=== PATIENT | female | born 2000 | race Caucasian/White ===

== ENCOUNTER 2022-09-17 10:35 | Observation (INO) ==
[2022-09-17] MEDS ORDERED: SODIUM CHLORIDE 0.9% 1000ML 1,000 ML IV ONE (12:07)
--- NOTE | 2022-09-17 12:07 | Emergency Department Note ---
Impression & Plan Acute appendicitis ADMIT ED Provider Note HPI: The patient is a 22-year-old female who presents emergency department with a chief complaint of appendicitis. Patient states she was seen earlier today at [facility] in [place]. She was diagnosed with appendicitis after CT imaging was performed. Patient states that she was not comfortable having the surgery done at that hospital and therefore came here to [facility] for possible surgical intervention. On arrival here to the ED the patient is in no acute distress, she is hemodynamically stable, she is afebrile on arrival. She states she has not had any nausea or vomiting, she has had localized right lower quadrant pain for the past 2 days ROS: - Per HPI *Outpatient medications and allergy history reviewed. *Pertinent external medical records reviewed. PE: General: Alert HEENT: Normocephalic, trachea midline Eyes: Extraocular eye movement is intact, no scleral erythema Pulmonary: Clear to auscultation bilaterally, no wheezing Cardio: Regular rate and rhythm GI: Abdomen is soft to palpation, there is moderate tenderness to palpation in the right lower quadrant without guarding or rigidity : No suprapubic tenderness MSK: No evidence of trauma or malformation of the extremities, no edema Skin: No evidence of rash Neuro: Alert, no focal deficits Psychiatric: Cooperative maintenance journeyman: (As interpreted by myself): - An order was placed for continuous cardiac monitoring - Patient was noted to be in sinus rhythm with a rate of 80 Interventions provided in ED: -IV fluid bolus Differential Diagnosis: Acute appendicitis, ovarian torsion, urinary tract infection, diverticulitis, gastroenteritis, small bowel obstruction, amongst other potential pathologies. Medical Decision Making: The patient is an otherwise healthy 22-year-old female who presents emergency department for evaluation after she was diagnosed with acute appendicitis at an outside hospital earlier this morning. On arrival here to the ED the patient is in no acute distress, she does have some tenderness in the right lower quadrant on my exam, no guarding or rigidity. IV was established and lab work obtained, patient was placed on claims adjuster crop, given the adnexal tenderness on exam while awaiting fax report from [facility], ultrasound imaging of the pelvis was obtained that does not show any evidence of ovarian torsion on the right side or any other acute abnormality. Patient's urinalysis does not appear to be consistent with obvious infection, she does have a mild leukocytosis. Case was discussed with on-call general surgery, Dr. Truong, he did evaluate the patient at the bedside. We did review records that were faxed from [facility], CT scan was read as acute appendicitis. Following Dr. Truong's evaluation, he transported the patient to the operating room for definitive care. Patient was transferred to the operating room under the service of Dr. Truong in stable condition. Consultants: General surgery, Dr. Truong Diagnosis: 1. Acute appendicitis 2. Acute abdominal pain, right lower quadrant 3. Leukocytosis Disposition: Admission to general surgery Ranjeet Chavez DO Emergency Medicine Allergies Allergies Allergy/AdvReac Type Severity Reaction Status Date / Time No Known Allergies Allergy Unverified 09/17/22 16:18 Results & Data (ED) Vital Signs Vital Signs - 24 hr 09/17/22 11:13 09/17/22 11:38 09/17/22 13:02 Temperature 36.7 C 37.4 C Temperature Source Temporal Artery Scan Oral Pulse Rate 89 Pulse Rate [Apical] 84 Pulse Rhythm [Apical] Regular Respiratory Rate 18 18 Respiratory Effort / Characteristics Non-Labored Spontaneous Respiratory Depth Normal Respiratory Pattern Regular Blood Pressure 104/68 Blood Pressure [Right Arm] 129/84 Blood Pressure Mean 80 Blood Pressure Mean [Right Arm] 99 Blood Pressure Position [Right Arm] Lying Pulse Oximetry 99 98 98 Oxygen Delivery Method Room Air Room Air Room Air Sepsis Recent Fever Within 48 Hours No Sepsis New/Unexplained Change in Mental Status No Sepsis Action Taken by Nursing No Action Required 09/17/22 13:07 09/17/22 16:56 Temperature 36.5 C Temperature Source Oral Pulse Rate Pulse Rate [Apical] 83 Pulse Rhythm [Apical] Respiratory Rate 18 Respiratory Effort / Characteristics Non-Labored Spontaneous Respiratory Depth Normal Respiratory Pattern Regular Blood Pressure Blood Pressure [Right Arm] 124/86 Blood Pressure Mean Blood Pressure Mean [Right Arm] 98 Blood Pressure Position [Right Arm] Lying Pulse Oximetry 98 Oxygen Delivery Method Room Air Sepsis Recent Fever Within 48 Hours Sepsis New/Unexplained Change in Mental Status Sepsis Action Taken by Nursing Laboratory Data 09/17/22 12:21 09/17/22 12:21 Lab Results 09/17/22 09/17/22 09/17/22 Range/Units 12:21 12:21 12:21 WBC 11.47 H (4.8-10.8) K/ul RBC 4.57 (4.20-5.40) M/uL Hgb 13.0 (12.0-16.0) g/dl Hct 37.6 (37.0-47.0) % MCV 82.3 (80.0-100.0) fL MCH 28.4 (25.0-34.0) pg MCHC 34.6 (32.0-36.0) g/dL RDW Std Deviation 37.2 (36.4-46.3) fL RDW Coeff of [place] 12.3 (11.5-14.5) % Plt Count 305 (130-400) K/uL MPV 9.6 (9.4-12.4) fL Immature Gran % (Auto) 0.3 % Neut % (Auto) 64.2 % Lymph % (Auto) 27.6 % [place] % (Auto) 6.2 % Eos % (Auto) 1.4 % Baso % (Auto) 0.3 % Neut # (Auto) 7.35 H (1.40-6.50) K/uL Lymph # (Auto) 3.17 (1.2-3.4) K/uL [place] # (Auto) 0.71 H (0.11-0.59) K/uL Eos # (Auto) 0.16 (0-0.50) K/uL Baso # (Auto) 0.04 (0-0.2) K/uL Immature Gran # (Auto) 0.04 (0.01-0.20) K/uL Sodium 140 (136-145) mmol/L Potassium 4.1 (3.5-5.1) mmol/L Chloride 110 H (98-107) mmol/L Carbon Dioxide 21 (21-32) mmol/L Anion Gap 9 (3-11) BUN 11 (6-23) mg/dl Creatinine 1.15 (0.6-1.2) mg/dl Est Cr Clr Drug Dosing 66.8 ml/min Est GFR ( Amer) 78.8 ml/min Est GFR (Non-Af Amer) 68.0 ml/min BUN/Creatinine Ratio 9.6 L (10-20) Glucose 80 (70-99(Fasting)) mg/dl Calcium 8.7 (8.5-10.1) mg/dl Total Bilirubin 0.5 (0.2-1.0) mg/dl AST 14 (13-39) U/L ALT 16 (7-52) U/L Alkaline Phosphatase 70 (34-104) U/L Total Protein 6.6 (6.0-8.3) gm/dl Albumin 3.9 (3.4-5.0) gm/dl Globulin 2.7 (2.5-4.0) gm/dl Albumin/Globulin Ratio 1.4 (0.9-2) Lipase 8 L (11-82) U/L HCG, Qual Negative (Negative) Urine Color Urine Appearance (Clear) Urine pH (4.5-7.5) Ur Specific [place] (1.000-1.030) Urine Protein (Negative) Urine Glucose (UA) (Negative) Urine Ketones (Negative) Urine Blood (Negative) Urine Nitrite (Negative) Urine Bilirubin (Negative) Urine Urobilinogen (Negative) Ur Leukocyte Esterase (Negative) Urine WBC (Auto) (0-5) /hpf Urine RBC (Auto) (0-4) /hpf U Hyaline Cast (Auto) (0-5) /lpf U Epithel Cells (Auto) (0-5) /lpf Urine Bacteria (Auto) (Negative) SARS-CoV-2, RNA, NAAT (NEGATIVE) 09/17/22 09/17/22 Range/Units 12:22 14:37 WBC (4.8-10.8) K/ul RBC (4.20-5.40) M/uL Hgb (12.0-16.0) g/dl Hct (37.0-47.0) % MCV (80.0-100.0) fL MCH (25.0-34.0) pg MCHC (32.0-36.0) g/dL RDW Std Deviation (36.4-46.3) fL RDW Coeff of [place] (11.5-14.5) % Plt Count (130-400) K/uL MPV (9.4-12.4) fL Immature Gran % (Auto) % Neut % (Auto) % Lymph % (Auto) % [place] % (Auto) % Eos % (Auto) % Baso % (Auto) % Neut # (Auto) (1.40-6.50) K/uL Lymph # (Auto) (1.2-3.4) K/uL [place] # (Auto) (0.11-0.59) K/uL Eos # (Auto) (0-0.50) K/uL Baso # (Auto) (0-0.2) K/uL Immature Gran # (Auto) (0.01-0.20) K/uL Sodium (136-145) mmol/L Potassium (3.5-5.1) mmol/L Chloride (98-107) mmol/L Carbon Dioxide (21-32) mmol/L Anion Gap (3-11) BUN (6-23) mg/dl Creatinine (0.6-1.2) mg/dl Est Cr Clr Drug Dosing ml/min Est GFR ( Amer) ml/min Est GFR (Non-Af Amer) ml/min BUN/Creatinine Ratio (10-20) Glucose (70-99(Fasting)) mg/dl Calcium (8.5-10.1) mg/dl Total Bilirubin (0.2-1.0) mg/dl AST (13-39) U/L ALT (7-52) U/L Alkaline Phosphatase (34-104) U/L Total Protein (6.0-8.3) gm/dl Albumin (3.4-5.0) gm/dl Globulin (2.5-4.0) gm/dl Albumin/Globulin Ratio (0.9-2) Lipase (11-82) U/L HCG, Qual (Negative) Urine Color Yellow Urine Appearance Clear (Clear) Urine pH 5.5 (4.5-7.5) Ur Specific [place] 1.022 (1.000-1.030) Urine Protein Negative (Negative) Urine Glucose (UA) Negative (Negative) Urine Ketones 1+ H (Negative) Urine Blood Negative (Negative) Urine Nitrite Negative (Negative) Urine Bilirubin Negative (Negative) Urine Urobilinogen Negative (Negative) Ur Leukocyte Esterase Trace H (Negative) Urine WBC (Auto) 10-30 H (0-5) /hpf Urine RBC (Auto) 0-4 (0-4) /hpf U Hyaline Cast (Auto) 1-5 (0-5) /lpf U Epithel Cells (Auto) >30 H (0-5) /lpf Urine Bacteria (Auto) 1+ H (Negative) SARS-CoV-2, RNA, NAAT NEGATIVE (NEGATIVE) Administered Medications Discontinued Medications Sodium Chloride (Nss 1000ml) 1,000 mls @ 999 mls/hr IV .[id number] ONE Stop: 09/17/22 13:07 Last Infusion: 09/17/22 15:15 Dose: 0 mls/hr Documented By: Admin: 09/17/22 13:05 Dose: 999 mls/hr Documented By: KAYLAH Cefoxitin Sodium (Mefoxin) 2,000 mg in 60 mls @ 100 mls/hr IV NOW STA Stop: 09/17/22 16:53 Last Admin: 09/17/22 16:41 Dose: 100 mls/hr Documented By: KAYLAH Imaging Data Radiologist's Impression: Pelvis Ultrasound 09/17/22 14:02 US pelvic complete HISTORY: 22 years-old Female RLQ pain . Acute right lower quadrant abdominal pain COMPARISON: CT abdomen and pelvis of same day TECHNIQUE: Multiple real-time sonographic images of the deep pelvic structures were obtained transabdominally and transvaginally assessing grayscale appearance, color and spectral flow FINDINGS: TRANSABDOMINAL: Pelvic structures are obscured by bowel gas. Transvaginal: Uterus measures 7.2 x 3.7 x 4.5 cm. Endometrium measures 4 mm in thickness. Trace free fluid within the pelvic cul-de-sac. Left ovary is obscured by bowel gas. The right ovary measures 1.9 x 1.2 x 3.0 cm and is unremarkable with arterial inflow and venous outflow. IMPRESSION: Unremarkable pelvic ultrasound. Nonvisualization of the left ovary. ACT 112: Negative or not required by law. The above report was generated using voice recognition software. It may contain grammatical, syntax or spelling errors. Electronically signed by: Baldomero Wallace M.D. 09/17/2022 3:43 PM Discharge Plan Visit Data Chief Complaint: Abdominal Pain Stated Complaint: ABDOMINAL PAIN,APPENDICITIS,PREFERS SURGERY HERE ED Provider: Ranjeet Chavez Discharge Problem: Acute appendicitis
[2022-09-17 12:56] LABS: Basophils # (auto) 0.04 K/uL (0-0.2); Basophils % (auto) 0.3 %; Eosinophils # (auto) 0.16 K/uL (0-0.50); Eosinophils % (auto) 1.4 %; Hematocrit (blood only) 37.6 % (37.0-47.0); Immature Granulocytes # (auto) 0.04 K/uL (0.01-0.20); Immature Granulocytes % (auto) 0.3 %; Lymphocytes # (auto) 3.17 K/uL (1.2-3.4); Lymphocytes % (auto) 27.6 %; Mean Corpuscular Hemoglobin 28.4 pg (25.0-34.0); Mean Corpuscular Hgb Conc 34.6 g/dL (32.0-36.0); Mean Corpuscular Volume 82.3 fL (80.0-100.0); Mean Platelet Volume 9.6 fL (9.4-12.4); Monocytes # (auto) 0.71 K/uL (0.11-0.59); Monocytes % (auto) 6.2 %; Neutrophils # (auto) 7.35 K/uL (1.40-6.50); Neutrophils % (auto) 64.2 %; Platelet Count 305 K/uL (130-400); RDW Coefficient of Variation 12.3 % (11.5-14.5); RDW Standard Deviation 37.2 fL (36.4-46.3); Red Blood Count 4.57 M/uL (4.20-5.40); White Blood Count 11.47 K/ul (4.8-10.8)
[2022-09-17 13:15] LABS: Albumin Globulin Ratio 1.4 (0.9-2); Albumin Level 3.9 gm/dl (3.4-5.0); BUN Creatinine Ratio 9.6 (10-20); Bilirubin,Total 0.5 mg/dl (0.2-1.0); Calcium 8.7 mg/dl (8.5-10.1); Creatinine Clr Calc Pharmacy 66.8 ml/min; Est GFR (African American) 78.8 ml/min; Globulin 2.7 gm/dl (2.5-4.0); Potassium 4.1 mmol/L (3.5-5.1); Total Protein 6.6 gm/dl (6.0-8.3)
[2022-09-17 13:20] LABS: Pregnancy Test, Serum Negative (Negative)
[2022-09-17 14:08] LABS: Appearance Urine Clear (Clear); Bacteria Urine Automated 1+ (Negative); Bilirubin Urine Negative (Negative); Blood Urine Negative (Negative); Color Urine Yellow; Epithelial Cell Urine Auto >30 /lpf (0-5); Glucose Urine UA Negative (Negative); Ketones Urine 1+ (Negative); Leukocyte Esterase Urine Trace (Negative); Nitrite Urine Negative (Negative); Protein Urine Negative (Negative); RBC Urine Automated 0-4 /hpf (0-4); Specific Gravity Urine 1.022 (1.000-1.030); Urobilinogen Urine Negative (Negative); pH Urine 5.5 (4.5-7.5)
--- NOTE | 2022-09-17 15:45 | Ultrasound Report ---
US pelvic complete HISTORY: 22 years-old Female RLQ pain . Acute right lower quadrant abdominal pain COMPARISON: CT abdomen and pelvis of same day TECHNIQUE: Multiple real-time sonographic images of the deep pelvic structures were obtained transabd ominally and transvaginally assessing grayscale appearance, color and spectral flow FINDINGS: TRANSABDOMINAL: Pelvic structures are obscured by bowel gas. Transvaginal: Uterus measures 7.2 x 3.7 x 4.5 cm. Endometrium measures 4 mm in thickness. Trace free fluid within t he pelvic cul-de-sac. Left ovary is obscured by bowel gas. The right ovary measures 1.9 x 1.2 x 3.0 c m and is unremarkable with arterial inflow and venous outflow. IMPRESSION: Unremarkable pelvic ultrasound. Nonvisualization of the left ovary. ACT 112: Negative or not required by law. The above report was generated using voice recognition software. It may contain grammatical, syntax o r spelling errors. Electronically signed by: Baldomero Wallace M.D. 09/17/2022 3:43 PM
[2022-09-17] MEDS ORDERED: cefOXitin 2,000 MG/60 ML BAG IV STA (16:18)
--- NOTE | 2022-09-17 16:19 | Surgery Consultation ---
Date of Consultation September 17, 2022 Assessment & Plan (1) RLQ abdominal pain: (2) Acute appendicitis: pt is a 22 year-old female who presents to ER with 2 days history RLQ pain, IMP: acute appendicitis, plan, base on H/P, CT scan finding, diagnosis- acute appendicitis, I recommend to do laparoscopic appendectomy, possible open, D/W benefits, risks and alternatives of the surgery, the risks - infection, bleeding injury other organs, abscess, possible negative for appendicitis, but still do appendectomy, incisional hernia, pt and her mother understood, they agreed with surgery, pt signed informed consent, I answered all questions, pre- inv antibiotic, History of Present Illness Reason for Consultation: appendicitis Requesting Physician: Ranjeet Whittington History of Present Illness CC: RLQ pain HPI : pt is a 22 year-old female who presents with 2 days history RLQ pain with nausea and vomiting, the pain is located RLQ, the pain is getting worse, pt went other hospital ER, pt had CT scan done, which diagnosis- 9mm acute appendicitis, pt did not want to do surgery at that hospital, pt signed AMA, then pt came to [facility] ER. I got a call for consult appendicitis, I reviewed pt's H/P, labs and CT scan report with pt. pt is still have significant RLQ pain, T 37.4, WBC 11,400. pt denies dysuria, no diarrhea. Allergies Allergy/AdvReac Type Severity Reaction Status Date / Time No Known Allergies Allergy Unverified 09/17/22 16:18 Review of Systems Constitutional: as per Subjective / HPI Eyes: as per Subjective / HPI Respiratory: as per Subjective / HPI Cardiovascular: as per Subjective / HPI Gastrointestinal: as per Subjective / HPI Genitourinary: as per Subjective / HPI Neurologic: as per Subjective / HPI Psychiatric: as per Subjective / HPI Endocrine: as per Subjective / HPI Hematologic / Lymphatic: as per Subjective / HPI Physical Exam Constitutional: WD/WN, vitals as above mild distress Eyes: PERRL, conjunctivae normal, anicteric sclerae Neck: trachea midline, no thyromegaly Respiratory: normal respiratory effort, lungs clear to auscultation Cardiovascular: RRR, no murmur, no edema Gastrointestinal (Abdomen): soft, tenderness at RLQ, with mild rebound pain, no distend, BS +, Musculoskeletal: no cyanosis or clubbing, extremities motor strength 5/5 Neurologic: patellar DTR's 2+ bilat, sensation intact Psychiatric: A+Ox3, euthymic affect Results & Data Vital Signs (Past 12 Hours) Vital Signs Temp Pulse Pulse Resp BP BP Pulse Ox 09/17/22 13:07 83 18 124/86 98 09/17/22 13:02 98 09/17/22 11:38 37.4 C 84 18 129/84 98 09/17/22 11:13 36.7 C 89 18 104/68 99 O2 Del Method 09/17/22 13:07 Room Air 09/17/22 13:02 Room Air 09/17/22 11:38 Room Air 09/17/22 11:13 Room Air Laboratory Results Abnormal lab results 09/17/22 09/17/22 09/17/22 Range/Units 12:21 12:21 12:22 WBC 11.47 H (4.8-10.8) K/ul Neut # (Auto) 7.35 H (1.40-6.50) K/uL [place] # (Auto) 0.71 H (0.11-0.59) K/uL Chloride 110 H (98-107) mmol/L BUN/Creatinine Ratio 9.6 L (10-20) Lipase 8 L (11-82) U/L Urine Ketones 1+ H (Negative) Ur Leukocyte Esterase Trace H (Negative) Urine WBC (Auto) 10-30 H (0-5) /hpf U Epithel Cells (Auto) >30 H (0-5) /lpf Urine Bacteria (Auto) 1+ H (Negative) Diagnostic Findings US pelvic complete HISTORY: 22 years-old Female RLQ pain . Acute right lower quadrant abdominal pain COMPARISON: CT abdomen and pelvis of same day TECHNIQUE: Multiple real-time sonographic images of the deep pelvic structures were obtained transabdominally and transvaginally assessing grayscale appearance, color and spectral flow FINDINGS: TRANSABDOMINAL: Pelvic structures are obscured by bowel gas. Transvaginal: Uterus measures 7.2 x 3.7 x 4.5 cm. Endometrium measures 4 mm in thickness. Trace free fluid within the pelvic cul-de-sac. Left ovary is obscured by bowel gas. The right ovary measures 1.9 x 1.2 x 3.0 cm and is unremarkable with arterial inflow and venous outflow. IMPRESSION: Unremarkable pelvic ultrasound. Nonvisualization of the left ovary. out side CT scan report- acute appendicitis, 9 mm,
--- NOTE | 2022-09-17 16:36 | History & Physical Bridge Note ---
Date of Service September 17, 2022 History & Physical Bridge Note I have examined the patient, reviewed the History & Physical and in the interval since the performance of the History & Physical I have noted the following changes of clinical significance: no changes noted
[2022-09-17] MEDS ORDERED: MIDAZOLAM HCL 1 MG/ML 2ML VIAL ONE (17:45)
[2022-09-17] MEDS ORDERED: fentaNYL citrate PF 100 MCG/2 ML VIAL ONE (17:46)
[2022-09-17] MEDS ORDERED: BUPIVACAINE 0.5 % 5 MG/1 ML MPF 30ML VIAL ONE (17:48)
[2022-09-17] MEDS ORDERED: BACITRACIN OINT 15 GM TUBE ONE (17:49)
[2022-09-17] MEDS ORDERED: LIDOCAINE 1% LOCAL 20 ML VIAL ONE (17:49)
[2022-09-17] MEDS ORDERED: ATROPINE SULFATE 0.1 MG/ML 10ML SYR IV PRN (17:50)
[2022-09-17] MEDS ORDERED: PROMETHAZINE HCL 6.25 MG in SODIUM CHLORIDE 0.9% 50 ML IV PRN (17:50)
[2022-09-17] MEDS ORDERED: ONDANSETRON INJ 2 MG/ML 2 ML VIAL IV PRN ×2 (17:50→20:25)
[2022-09-17] MEDS ORDERED: ePHEDrine sulfate 50 MG/ML AMP IV PRN (17:50)
--- NOTE | 2022-09-17 17:50 | Anesthesiology Consultation ---
Date of Service September 17, 2022 Assessment & Plan Chart Review Chart Review: Acceptable Risk for Surgery and Patient NOT seen in Pre Admission Testing Consults Requested none ASA [id number] Proposed Anesthesia Anesthesia Type: General Risk / Benefits Reviewed With: PT / POA / Parent / Guardian, Accepts Plan and Informed Consent Obtained History Surgery Operation Date: 09/17/22 15:50 Proposed Procedures p Laparoscopic Appendectomy - Saira Truong MD Height/Weight Height: 5 ft 4 in Weight: 58.2 kg Allergies Allergy/AdvReac Type Severity Reaction Status Date / Time No Known Allergies Allergy Unverified 09/17/22 16:18 NPO Date Last Intake of Fluids: 09/17/22 Time Last Intake of Fluids: 06:00 Date Last Intake of Solids: 09/16/22 Time Last Intake of Solids: 22:00 Exercise / Class Metabolic Activity II 4-5 Yardwork/Stairs/Walk up hill Past Anesthesia History No Hx of Anesthesia Complications and No Family Hx of Anesthesia Complications History of PONV No Hx of PONV and No Hx of Motion Sickness Physical Exam Vital Signs Last Vital Signs Temp 36.5 C 09/17/22 16:56 Pulse 83 09/17/22 13:07 Resp 18 09/17/22 13:07 BP 124/86 09/17/22 13:07 Pulse Ox 98 09/17/22 13:07 O2 Del Method Room Air 09/17/22 13:07 ENMT Mouth: no dentition abnormality Thyromental Distance: > or= 3.5 Finger Breadths Mallampati Class: II Neck normal visual inspection Respiratory normal respiratory effort Auscultation: lungs clear to auscultation bilaterally Cardiovascular Rate/Rhythm: regular rate and regular rhythm Psychiatric Orientation: alert Testing Laboratory Results 09/17/22 12:21 09/17/22 12:21 Urine Color Yellow 09/17/22 12:22 Urine Appearance Clear (Clear) 09/17/22 12:22 Urine pH 5.5 (4.5-7.5) 09/17/22 12:22 Ur Specific [place] 1.022 (1.000-1.030) 09/17/22 12:22 Urine Protein Negative (Negative) 09/17/22 12:22 Urine Glucose (UA) Negative (Negative) 09/17/22 12:22 Urine Ketones 1+ (Negative) H 09/17/22 12:22 Urine Nitrite Negative (Negative) 09/17/22 12:22 Ur Leukocyte Esterase Trace (Negative) H 09/17/22 12:22 Urine WBC (Auto) 10-30 /hpf (0-5) H 09/17/22 12:22 Urine RBC (Auto) 0-4 /hpf (0-4) 09/17/22 12:22 U Hyaline Cast (Auto) 1-5 /lpf (0-5) 09/17/22 12:22 U Epithel Cells (Auto) >30 /lpf (0-5) H 09/17/22 12:22 Urine Bacteria (Auto) 1+ (Negative) H 09/17/22 12:22
[2022-09-17] MEDS ORDERED: DEXAMETHASONE SOD INJ 4 MG/ML VIAL ONE (18:00)
[2022-09-17] MEDS ORDERED: PROPOFOL IV EMULSION 10 MG/ML 20 ML VIAL IV ONE (18:00)
[2022-09-17] MEDS ORDERED: LIDOCAINE 2% MPF LOCAL 5 ML VIAL INFIL ONE (18:00)
[2022-09-17] MEDS ORDERED: ROCURONIUM BROMIDE 10 MG/ML 5 ML VIAL IV ONE (18:00)
[2022-09-17] MEDS ORDERED: NEOSTIGMINE METHYLSULFATE 1 MG/ML 10ML VIAL ONE (18:56)
[2022-09-17] MEDS ORDERED: GLYCOPYRROLATE 0.2 MG/ML VIAL ONE (18:56)
[2022-09-17] MEDS ORDERED: ONDANSETRON INJ 2 MG/ML 2 ML VIAL ONE (18:56)
--- NOTE | 2022-09-17 19:14 | Post Operative Brief Note ---
Immediate Post Op Note v1 Date of Surgery September 17, 2022 Pre & Post Diagnosis Operation Date: 09/17/22 15:50 Pre-Op Diagnosis: ABDOMINAL PAIN,APPENDICITIS, Post-Op Diagnosis: ABDOMINAL PAIN,APPENDICITIS,adhesion on RLQ I identified the patient and participated in the time-out.: Yes Procedure Operation Date: 09/17/22 15:50 Actual Procedures p Laparoscopic Appendectomy, lysis of adhesion - Saira Truong MD Surgeon Saira Truong MD Service Establishment Attendant surgical scrub technologist Estimated Blood Loss 10 Findings Consistent with Post-Op Diagnosis mild appendicitis, adhesion on RLQ Fluids 800ml Specimens appendix Drains Fuentes Catheter Anesthesia Type General Complications none Disposition Accompanied Patient To Recovery: Yes
[2022-09-17] MEDS: fentaNYL citrate PF 100 MCG/2 ML VIAL IV PRN ×4 (19:24→19:53)
--- NOTE | 2022-09-17 19:32 | Anesthesiology Progress Note ---
Date of Service September 17, 2022 Anesthesia Post Procedure Vital Signs Vital Signs: Temp Pulse Pulse Resp BP BP Pulse Ox 09/17/22 16:56 36.5 C 09/17/22 13:07 83 18 124/86 98 09/17/22 13:02 98 09/17/22 11:38 37.4 C 84 18 129/84 98 09/17/22 11:13 36.7 C 89 18 104/68 99 O2 Del Method 09/17/22 16:56 09/17/22 13:07 Room Air 09/17/22 13:02 Room Air 09/17/22 11:38 Room Air 09/17/22 11:13 Room Air Pain Intensity Right Lower Abdomen: Pain Intensity: 7 Transfer of Care Handoff Completed per policy Notes Mental Status: alert / awake / arousable Patient Amnestic to Procedure: Yes Nausea / Vomiting: adequately controlled Pain: adequately controlled Airway Patency, RR, SpO2: stable & adequate BP & HR: stable & adequate Hydration State: stable & adequate Anesthetic Complications: no major complications apparent
[2022-09-17] MEDS ORDERED: oxyCODONE/ACETAMINOPHEN 5mg/325mg TAB PO PRN (20:25)
[2022-09-17] MEDS ORDERED: HYDROmorphone INJ 0.5 MG/0.5 ML SYR IV PRN (20:25)
[2022-09-17] MEDS: LACTATED RINGER'S 1,000 ML IV SCH (20:31)
--- NOTE | 2022-09-17 21:34 | Operative Report (OR) ---
DATE OF PROCEDURE: 09/17/2022. PREOPERATIVE DIAGNOSES: Right lower quadrant pain, acute appendicitis. POSTOPERATIVE DIAGNOSES: Right lower quadrant pain, acute appendicitis, adhesion on the right lower quadrant. PROCEDURE: Laparoscopic appendectomy, lysis of adhesion. SURGEON: Saira Truong MD ANESTHESIA: General. ESTIMATED BLOOD LOSS: About 10 mL. FINDINGS: Mild appendicitis and significant adhesion on the right lower quadrant. COMPLICATIONS: None. INDICATIONS FOR THE PROCEDURE: This is a 22-year-old female who presented with a 2-day history of right lower quadrant pain. The patient also had a CT scan diagnosis of acute appendicitis and I recommended to do laparoscopic appendectomy, possible open. I did talk to the patient about the benefits, risks, alternate procedures. I indicated the risks may include, but not limited to, such as bleeding, infection, injury to other organs, abscess, incisional hernia, if negative for appendicitis, still need to do the appendectomy. The patient and the patient's mom understand. They agreed to proceed with procedure. The patient signed informed consent and I answered all the questions. DETAILS OF PROCEDURE: After we identified the patient and verified the procedure, we brought in the patient to the OR and put the patient in the supine position on the OR table. The patient received SCDs on bilateral legs to prevent DVT. Also, the patient received 2 grams cefoxitin IV for prophylactic antibiotic. The patient received general anesthesia without difficulty and also the patient received Fuentes catheter insertion for drainage of urine. The abdomen was prepped and draped in routine sterile fashion. After timeout, I injected the local anesthesia by using 1% lidocaine mixed with 0.5% Marcaine just above the umbilicus. Then, I made a small incision just above umbilicus, opened fascia, opened peritoneum. Under direct vision, put a Mike trocar in, connected to CO2 to create pneumoperitoneum. Again put camera in, looked around the abdomen. The flow rate at 6 liters per minute, pressure not more than 14 mmHg. Once we got a nice pneumoperitoneum, we put a camera in, looked around the abdomen. A significant scar adhesion on the right lower quadrant area and at this moment, we put another two 5 mm trocars on the left lower quadrant area. Then we used the sharp scissors to take down all of the adhesion scar on the right lower quadrant area. There was some scar adhesion the right-sided colon to abdominal wall. Once we completely took out all the scar, rechecked, no active bleeding. Then, at this moment, we mobilized the cecum area, found the patient had a mild enlarged appendix, confirmed diagnosis of mild appendicitis. There was some inflammation on the appendix. Once we confirmed the diagnosis, we used the Harmonic to take down the appendiceal, rechecked, no active bleeding. Then, I used 45 mm Endo-RASHEL stapler for transection on the base of appendix, rechecked the staple line, intact, no leak. Then, we removed the appendix through the catch bag. Then, we reinserted the Mike trocar in, connected to CO2 to create pneumoperitoneum. Again looked around the abdomen, no active bleeding and no injury to the bowel where we took down the adhesion, staple line intact. No active bleeding, no leak. Then, we removed all trocars under direct vision. No active bleeding from the trocar site. Pneumoperitoneum was released. Then I closed the umbilical incision fascial layer by using 0 Vicryl [id number] x2, closed subcutaneous layer by using 2-0 Vicryl interruptedly, closed skin by using 4-0 Vicryl continuous running, closed another two 5 mm trocar sites skin only by using 4-0 Vicryl. Then, we put the dressing on. The patient tolerated the procedure well. All the instrument, needle and sponge counts were correct x2 at the end of the case. The patient was transferred to recovery room in stable condition. The specimen was sent to pathology. After the procedure, I did talk to the patient and the patient's family member about the OR finding, procedure we did, they understand. Job ID: [id number] [facility]
[2022-09-18 06:28] LABS: Basophils # (auto) 0.01 K/uL (0-0.2); Basophils % (auto) 0.1 %; Hematocrit (blood only) 38.9 % (37.0-47.0); Hemoglobin 13.2 g/dl (12.0-16.0); Immature Granulocytes # (auto) 0.02 K/uL (0.01-0.20); Immature Granulocytes % (auto) 0.2 %; Lymphocytes # (auto) 0.94 K/uL (1.2-3.4); Lymphocytes % (auto) 9.5 %; Mean Corpuscular Hgb Conc 33.9 g/dL (32.0-36.0); Mean Corpuscular Volume 82.6 fL (80.0-100.0); Mean Platelet Volume 9.3 fL (9.4-12.4); Monocytes # (auto) 0.32 K/uL (0.11-0.59); Monocytes % (auto) 3.2 %; Platelet Count 332 K/uL (130-400); RDW Coefficient of Variation 12.2 % (11.5-14.5); RDW Standard Deviation 36.9 fL (36.4-46.3); Red Blood Count 4.71 M/uL (4.20-5.40); White Blood Count 9.89 K/ul (4.8-10.8)
[2022-09-18] MEDS: LACTATED RINGER'S 1,000 ML IV SCH (09:19)
--- NOTE | 2022-09-18 11:36 | Surgery Progress Note ---
Date of Service September 18, 2022 Assessment & Plan (1) RLQ abdominal pain: Plan: see below (2) Acute appendicitis: Plan: pt is a 22 year-old female who presents to ER with 2 days history RLQ pain, IMP: acute appendicitis, plan, base on H/P, CT scan finding, diagnosis- acute appendicitis, I recommend to do laparoscopic appendectomy, possible open, D/W benefits, risks and alternatives of the surgery, the risks - infection, bleeding injury other organs, abscess, possible negative for appendicitis, but still do appendectomy, incisional hernia, pt and her mother understood, they agreed with surgery, pt signed informed consent, I answered all questions, pre- inv antibiotic, 09/18/2022 11:38 AM F/P S/P lap appy, lysis of adhesion, doing fine, I update about OR finding to pt and her mother , father, pt wants to go home today, post- op care instruction was given, F/U me 2 weeks, Admission and Anticipated Discharge Date Admission Date: September 17, 2022 Subjective F/U S/P laparoscopic appendectomy, lysis of adhesion, POD 1 pt is doing fine, no significant abdominal pain, tolerated diet, no fever. Review of Systems Constitutional: as per Subjective / HPI Eyes: as per Subjective / HPI Respiratory: as per Subjective / HPI Cardiovascular: as per Subjective / HPI Gastrointestinal: as per Subjective / HPI Genitourinary: as per Subjective / HPI Neurologic: as per Subjective / HPI Psychiatric: as per Subjective / HPI Endocrine: as per Subjective / HPI Hematologic / Lymphatic: as per Subjective / HPI Physical Exam Constitutional: WD/WN, vitals as above Eyes: PERRL, conjunctivae normal, anicteric sclerae Neck: trachea midline, no thyromegaly Respiratory: normal respiratory effort, lungs clear to auscultation Cardiovascular: RRR, no murmur, no edema Gastrointestinal (Abdomen): soft, mild tenderness at incision site, no rebound pain, no distend, all incisi ons intact, no redness, BS +, Musculoskeletal: no cyanosis or clubbing, extremities motor strength 5/5 Neurologic: patellar DTR's 2+ bilat, sensation intact Psychiatric: A+Ox3, euthymic affect Results & Data Vital Signs (Past 12 Hours) Vital Signs Temp Pulse Resp BP Pulse Ox O2 Del Method 09/18/22 07:46 36.7 C 78 16 114/74 96 Room Air 09/18/22 02:52 36.6 C 86 18 116/73 98 Room Air 09/17/22 23:42 36.7 C 104 H 18 116/77 98 Room Air Laboratory Results Abnormal lab results 09/17/22 09/17/22 09/17/22 Range/Units 12:21 12:21 12:22 WBC 11.47 H (4.8-10.8) K/ul MPV (9.4-12.4) fL Neut # (Auto) 7.35 H (1.40-6.50) K/uL Lymph # (Auto) (1.2-3.4) K/uL [place] # (Auto) 0.71 H (0.11-0.59) K/uL Chloride 110 H (98-107) mmol/L BUN/Creatinine Ratio 9.6 L (10-20) Lipase 8 L (11-82) U/L Urine Ketones 1+ H (Negative) Ur Leukocyte Esterase Trace H (Negative) Urine WBC (Auto) 10-30 H (0-5) /hpf U Epithel Cells (Auto) >30 H (0-5) /lpf Urine Bacteria (Auto) 1+ H (Negative) 09/18/22 Range/Units 05:23 WBC (4.8-10.8) K/ul MPV 9.3 L (9.4-12.4) fL Neut # (Auto) 8.60 H (1.40-6.50) K/uL Lymph # (Auto) 0.94 L (1.2-3.4) K/uL [place] # (Auto) (0.11-0.59) K/uL Chloride (98-107) mmol/L BUN/Creatinine Ratio (10-20) Lipase (11-82) U/L Urine Ketones (Negative) Ur Leukocyte Esterase (Negative) Urine WBC (Auto) (0-5) /hpf U Epithel Cells (Auto) (0-5) /lpf Urine Bacteria (Auto) (Negative) (2) Acute appendicitis Acute appendicitis type: unspecified acute appendicitis type Qualified Code(s): K35.80 - Unspecified acute appendicitis
--- NOTE | 2022-09-18 12:35 | Discharge Summary (DS) ---
DATE OF ADMISSION: 09/17/2022 DATE OF DISCHARGE: 09/18/2022 ADMISSION DIAGNOSES: Acute appendicitis, right lower quadrant pain. DISCHARGE DIAGNOSES: Acute appendicitis. Adhesion of the right lower quadrant. OPERATION: Laparoscopic appendectomy, lysis of the adhesion. SURGEON: Saira Truong MD DETAILS OF DISCHARGE SUMMARY: This is a 22-year-old female who presented to ED with 2-day history of acute right lower quadrant pain and the patient also had a CT scan diagnosis of acute appendicitis. We took the patient to the OR. We did laparoscopic appendectomy and during the procedure, we found t he patient has a significant adhesion in the right lower quadrant. We also lysed the adhesion and th e patient tolerated the procedure well. After the procedure, the patient was transferred to recovery room and later on transferred to regular floor. The patient is doing fine, tolerated a diet. No si gnificant abdominal pain. No nausea, no vomiting, no fever. PHYSICAL EXAMINATION: VITAL SIGNS: Temperature is 36.6, respiratory rate 18, heart rate of 74, blood pressure 124/82, O2 s aturation 96% on room air. GENERAL: The patient is alert, awake, oriented x3. HEENT: Within normal limitation. NEUROLOGIC: Intact. NECK: No JVD. CHEST: Bilateral lung sounds clear. HEART: Normal S1 and S2. No murmur. ABDOMEN: Soft, mild tenderness on the incision site. No rebound pain, no distention. All incisions intact. No redness. Bowel sounds positive. EXTREMITIES: No edema. The patient wanted to go home. We gave the patient postop care instruction. I will follow up the pa tient in 2 weeks and also before discharging the patient, I updated information about the OR finding and the procedure we did to the patient and the patient's family member. They understand. I answere d all questions. Job ID: [id number]
== END 2022-09-18 12:34 | disposition home or self-care (01) ==
LOC: ED 10:35 → OR 16:50 → 3N 19:20 → INTOOBSV 19:20